=== PATIENT | female | born 1980 | race Caucasian/White ===

== ENCOUNTER 2016-07-12 15:00 | Emergency (ER) | payer MEDICAID ==
[2016-07-12 15:44] VITALS: BP 145/82
--- NOTE | 2016-07-12 17:00 | EDM.PDOC ---
ED HPI GENERAL MEDICAL PROBLEM - General Chief Complaint: Lower Extremity Injury/Pain Stated Complaint: RIGHT BIG TOE FRACTURE? Time Seen by Provider: 07/12/16 16:22 Source of Information: Reports: Patient History Limitations: Reports: No Limitations - History of Present Illness INITIAL COMMENTS - FREE TEXT/NARRATIVE: This lady was pulling some kind of a ceramic pot out of a cabinet when she dropped it onto her right great toe. This happened just prior to arrival. She complains of a lot of pain to the toe and is wondering if it might be broken. - Related Data Allergies Allergy/AdvReac Type Severity Reaction Status Date / Time adhesive Allergy Rash Verified 12/06/15 13:09 codeine Allergy Other Verified 12/06/15 13:09 propoxyphene napsylate AdvReac Unknown Nausea and Verified 12/06/15 13:09 [From Darvocet-N 100] Vomiting sumatriptan [From Imitrex] AdvReac Unknown Dizziness Verified 12/06/15 13:09 sumatriptan succinate AdvReac Unknown Dizziness Verified 12/06/15 13:09 [From Imitrex] influenza virus vaccine, AdvReac Fever Verified 12/06/15 13:09 specific [Influenza Virus Vacc,Specific] Home Meds: Home Meds Omeprazole 20 mg PO ASDIRECTED PRN 01/03/13 [History] Acetaminophen [Tylenol Jr. Meltaways] 640 mg PO Q4H PRN #100 tab.dis 01/07/13 [ Rx] Estradiol [Estradiol] 1 mg PO DAILY 01/08/14 [History] Topiramate [Topamax] 150 mg PO DAILY 01/08/14 [History] Calcium Citrate/Vitamin D3 [Calcium Citrate - Vit D Tablet] 1 tab PO BID [History] Cholecalciferol (Vitamin D3) [Vitamin D] 5,000 units PO BID 04/02/15 [History] Citalopram Hydrobromide [Celexa] 20 mg PO DAILY 04/02/15 [History] Cyanocobalamin (Vitamin B-12) [Vitamin B-12] 1,000 mcg IM Q21D 04/02/15 [History ] Multivitamin [Multiple Vitamins] 1 tab PO DAILY 04/02/15 [History] Ondansetron [Ondansetron ODT] 8 mg PO Q8H PRN 04/02/15 [History] Vitamin B Complex [B Complex] 1 tab PO DAILY 04/02/15 [History] Past Medical History HEENT History: Reports: Impaired Vision Cardiovascular History: Reports: None Respiratory History: Reports: Bronchitis, Recurrent Gastrointestinal History: Reports: GERD Genitourinary History: Reports: None 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: Musculoskeletal History: Reports: Back Pain, Chronic Other Musculoskeletal History: COMPRESSION FRACTURE IN HER THORACIC BACK Neurological History: Reports: Migraines Psychiatric History: Reports: Anxiety Endocrine/Metabolic History: Reports: Obesity/BMI 30+ Hematologic History: Reports: B12 Deficiency, Iron Deficiency Immunologic History: Reports: None Oncologic (Cancer) History: Reports: None Dermatologic History: Reports: None - Infectious Disease History Infectious Disease History: Reports: Chicken Pox - Past Surgical History Head Surgeries/Procedures: Reports: None Cardiovascular Surgical History: Reports: None GI Surgical History: Reports: Bariatric Procedure, Cholecystectomy, EGD Female Surgical History: Reports: Section, Hysterectomy, Salpingo- Oophorectomy Endocrine Surgical History: Reports: None Musculoskeletal Surgical History: Reports: Carpal Tunnel Dermatological Surgical History: Reports: None Social & Family History - Family History HEENT: Reports: Cataract, Glaucoma, Impaired Vision, Sinusitis Cardiac: Reports: Bypass, CAD, Hypertension, Stent Respiratory: Reports: Sleep Apnea GI: Reports: Chronic Diarrhea : Reports: Renal Disease/Insufficiency, UTI, Recurrent OBGYN: Reports: None Musculoskeletal: Reports: Arthritis Neurological: Reports: CVA, Dementia, Migraines Psychiatric: Reports: Anxiety Endocrine/Metabolic: Reports: Diabetes, Type I Hematologic: Reports: None Immunologic: Reports: None Dermatologic: Reports: None Oncologic: Reports: Bladder, Prostate, Renal - Tobacco Use Smoking Status *Q: Never Smoker Years of Tobacco use: 5 Packs/Tins Daily: 0.5 Used Tobacco, but Quit: Yes Month Tobacco Last Used: 2002 Second Hand Smoke Exposure: No - Caffeine Use Caffeine Use: Reports: Coffee - Alcohol Use Days Per Week of Alcohol Use: 0 - Recreational Drug Use Recreational Drug Use: No Review of Systems - Review of Systems Review Of Systems: ROS reveals no pertinent complaints other than HPI. Trauma Exam - Physical Exam Exam: See Below Exam Limited By: No Limitations General Appearance: Reports: Alert, No Apparent Distress, Obese Extremities: Other (The right great toe shows just some very minor ecchymosis around the nail but there is no subungual hematoma. There is good range of motion of the toe. There is mild to moderate generalized tenderness.) Course - Vital Signs Last Recorded V/S: Last Vital Signs Temp 37.0 C 07/12/16 16:09 Pulse 72 07/12/16 16:09 Resp 16 07/12/16 16:09 BP 145/82 H 07/12/16 16:09 Pulse Ox 99 07/12/16 16:09 - Orders/Labs/Meds Orders: Active Orders 24 hr Category Date Time Status Toes Great Toe Rt T5 [CR] Stat Exams 07/12/16 16:26 Ordered - Radiology Interpretation Free Text/Narrative:: No evidence of fracture or dislocation Departure - Departure Time of Disposition: 16:59 Disposition: Home, Self-Care 01 Condition: fair Clinical Impression: Contusion of great toe, right - Discharge Information Forms: ED Department Discharge Additional Instructions: It may help to apply ice to the toe but that's not necessary. Use Tylenol or ibuprofen for pain. It's okay to bear weight as tolerated. This should be back to normal in a day or 2. - My Orders Last 24 Hours: My Active Orders 07/12/16 16:26 Toes Great Toe Rt T5 [CR] Stat - Assessment/Plan Last 24 Hours: My Active Orders 07/12/16 16:26 Toes Great Toe Rt T5 [CR] Stat
--- NOTE | 2016-07-14 08:56 | CR ---
No fracture or dislocation.
== END 2016-07-12 18:19 | disposition home or self-care (01) ==
LOC: JP.ED 15:00
DX: S90.111A Contusion of right great toe without damage to nail, initial encounter (principal); K21.9 Gastro-esophageal reflux disease without esophagitis; G43.909 Migraine, unspecified, not intractable, without status migrainosus; F41.9 Anxiety disorder, unspecified; E66.9 Obesity, unspecified; Z68.30 Body mass index [BMI] 30.0-30.9, adult; Z90.49 Acquired absence of other specified parts of digestive tract; Z88.5 Allergy status to narcotic agent; Z88.8 Allergy status to other drugs, medicaments and biological substances; Z79.899 Other long term (current) drug therapy; Z90.710 Acquired absence of both cervix and uterus; Z98.890 Other specified postprocedural states; W22.8XXA Striking against or struck by other objects, initial encounter
CPT/HCPCS: 73660-26-T5; 73660-T5; 99282; 99284

== ENCOUNTER 2016-11-19 16:59 | Emergency (ER) | payer MEDICAID ==
[2016-11-19 17:28] VITALS: BP 122/72
--- NOTE | 2016-11-19 17:55 | EDM.PDOC ---
ED HPI GENERAL MEDICAL PROBLEM - General Chief Complaint: Lower Extremity Injury/Pain Stated Complaint: FALL/HURT LEFT LEG Time Seen by Provider: 11/19/16 17:30 Source of Information: Reports: Patient, Family History Limitations: Reports: No Limitations - History of Present Illness INITIAL COMMENTS - FREE TEXT/NARRATIVE: 36-year-old female was walking up the stairs, fell forward striking and abrading the anterior aspect of her lower left leg. It's painful to bear weight so she wanted it checked. No other injury. Onset: Sudden Duration: Hour(s): (Within the last few hours) Location: Reports: Lower Extremity, Left Quality: Reports: Burning, Throbbing Severity: Moderate Worsens with: Reports: Other (Weightbearing), Movement Associated Symptoms: Reports: No Other Symptoms Left Leg Pain Score (Numeric/FACES): 6 - Related Data Allergies Allergy/AdvReac Type Severity Reaction Status Date / Time adhesive Allergy Rash Verified 11/19/16 17:13 codeine Allergy Other Verified 11/19/16 17:13 propoxyphene napsylate AdvReac Unknown Nausea and Verified 11/19/16 17:13 [From Darvocet-N 100] Vomiting sumatriptan [From Imitrex] AdvReac Unknown Dizziness Verified 11/19/16 17:13 sumatriptan succinate AdvReac Unknown Dizziness Verified 11/19/16 17:13 [From Imitrex] influenza virus vaccine, AdvReac Fever Verified 11/19/16 17:13 specific [Influenza Virus Vacc,Specific] Home Meds: Home Meds Acetaminophen [Tylenol Jr. Boland] 640 mg PO Q4H PRN #100 tab.dis 01/07/13 [ Rx] Estradiol [Estradiol] 1 mg PO DAILY 01/08/14 [History] Topiramate [Topamax] 150 mg PO DAILY 01/08/14 [History] Calcium Citrate/Vitamin D3 [Calcium Citrate - Vit D Tablet] 1 tab PO BID [History] Cholecalciferol (Vitamin D3) [Vitamin D] 5,000 units PO BID 04/02/15 [History] Citalopram Hydrobromide [Celexa] 20 mg PO DAILY 04/02/15 [History] Cyanocobalamin (Vitamin B-12) [Vitamin B-12] 1,000 mcg IM Q21D 04/02/15 [History ] Multivitamin [Multiple Vitamins] 1 tab PO DAILY 04/02/15 [History] Ondansetron [Ondansetron ODT] 8 mg PO Q8H PRN 04/02/15 [History] Vitamin B Complex [B Complex] 1 tab PO DAILY 04/02/15 [History] Past Medical History HEENT History: Reports: Impaired Vision Cardiovascular History: Reports: None Respiratory History: Reports: Bronchitis, Recurrent Gastrointestinal History: Reports: GERD Genitourinary History: Reports: None 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: Musculoskeletal History: Reports: Back Pain, Chronic Other Musculoskeletal History: COMPRESSION FRACTURE IN HER THORACIC BACK Neurological History: Reports: Migraines Psychiatric History: Reports: Anxiety Endocrine/Metabolic History: Reports: Obesity/BMI 30+ Hematologic History: Reports: B12 Deficiency, Iron Deficiency Immunologic History: Reports: None Oncologic (Cancer) History: Reports: None Dermatologic History: Reports: None - Infectious Disease History Infectious Disease History: Reports: Chicken Pox - Past Surgical History GI Surgical History: Reports: Bariatric Procedure, Cholecystectomy, EGD Female Surgical History: Reports: Section, Hysterectomy, Salpingo- Oophorectomy Musculoskeletal Surgical History: Reports: Carpal Tunnel Social & Family History - Family History HEENT: Reports: Cataract, Glaucoma, Impaired Vision, Sinusitis Cardiac: Reports: Bypass, CAD, Hypertension, Stent Respiratory: Reports: Sleep Apnea GI: Reports: Chronic Diarrhea : Reports: Renal Disease/Insufficiency, UTI, Recurrent OBGYN: Reports: None Musculoskeletal: Reports: Arthritis Neurological: Reports: CVA, Dementia, Migraines Psychiatric: Reports: Anxiety Endocrine/Metabolic: Reports: Diabetes, Type I Hematologic: Reports: None Immunologic: Reports: None Dermatologic: Reports: None Oncologic: Reports: Bladder, Prostate, Renal - Tobacco Use Smoking Status *Q: Never Smoker Years of Tobacco use: 5 Packs/Tins Daily: 0.5 Used Tobacco, but Quit: Yes Month Tobacco Last Used: 2002 Second Hand Smoke Exposure: No - Caffeine Use Caffeine Use: Reports: Coffee - Alcohol Use Days Per Week of Alcohol Use: 0 - Recreational Drug Use Recreational Drug Use: No Review of Systems - Review of Systems Review Of Systems: See Below Constitutional: Denies: Fever Respiratory: Denies: Shortness of Breath, Cough Cardiovascular: Denies: Chest Pain Skin: Reports: Other (She has a superficial abrasion over the lower aspect of the left lower leg) Neurological: Denies: Paresthesia Psychiatric: Reports: No Symptoms ED EXAM, GENERAL - Physical Exam Exam: See Below Exam Limited By: No Limitations General Appearance: Alert, No Apparent Distress (No distress if resting her leg) Respiratory/Chest: No Respiratory Distress Extremities: Other (Remainder of exam is limited to the left lower extremity. She has a superficial abrasion with tenderness over the lower third of the anterior aspect of the lower extremity just above the ankle. No deformity, no significant ankle edema.) Neurological: Alert, Oriented Course - Vital Signs Last Recorded V/S: Last Vital Signs Temp 97.5 F 11/19/16 17:12 Pulse 65 11/19/16 17:12 Resp 16 11/19/16 17:12 BP 122/72 11/19/16 17:12 Pulse Ox 98 11/19/16 17:12 - Orders/Labs/Meds Orders: Active Orders 24 hr Category Date Time Status Tibia Fibula Lt [CR] Stat Exams 11/19/16 17:21 Taken - Re-Assessments/Exams Free Text/Narrative Re-Assessment/Exam: 11/19/16 17:55 A tib-fib x-ray was obtained of the left lower extremity. 11/19/16 18:21 X-rays negative. A four-inch Fran wrap was applied to the lower leg and the patient is going to increase activity as tolerated. Departure - Departure Time of Disposition: 18:27 Disposition: Home, Self-Care 01 Condition: Good Clinical Impression: Contusion of lower leg, left Qualifiers: Encounter type: initial encounter Qualified Code(s): S80.12XA - Contusion of left lower leg, initial encounter - Discharge Information Instructions: Contusion Referrals: Paris King PA [Primary Care Provider] - Forms: ED Department Discharge Care Plan Goals: Wrap leg for comfort, increase activity as tolerated and return if worsening or concerns. Also consider rechecking in 4-5 days if not improving satisfactorily. - My Orders Last 24 Hours: My Active Orders 11/19/16 17:21 Tibia Fibula Lt [CR] Stat - Assessment/Plan Last 24 Hours: My Active Orders 11/19/16 17:21 Tibia Fibula Lt [CR] Stat
--- NOTE | 2016-11-20 11:04 | CR ---
Tibia Fibula Lt INDICATION: fall,injury COMPARISON: None FINDINGS: 4 views. No fracture, dislocation, or other acute bony abnormality. No joint space narr owing. IMPRESSION: Negative study.
== END 2016-11-19 18:27 | disposition home or self-care (01) ==
LOC: JP.ED 16:59
DX: S80.12XA Contusion of left lower leg, initial encounter (principal); K21.9 Gastro-esophageal reflux disease without esophagitis; E10.9 Type 1 diabetes mellitus without complications; E66.9 Obesity, unspecified; G43.909 Migraine, unspecified, not intractable, without status migrainosus; I10 Essential (primary) hypertension; I25.10 Atherosclerotic heart disease of native coronary artery without angina pectoris; Z87.440 Personal history of urinary (tract) infections; Z88.8 Allergy status to other drugs, medicaments and biological substances; Z88.5 Allergy status to narcotic agent; Z88.7 Allergy status to serum and vaccine; Z79.899 Other long term (current) drug therapy; Z90.49 Acquired absence of other specified parts of digestive tract; Z90.710 Acquired absence of both cervix and uterus; W19.XXXA Unspecified fall, initial encounter
CPT/HCPCS: 73590-26-LT; 73590-LT; 99284

== ENCOUNTER 2017-09-13 18:06 | Emergency (ER) | payer MEDICAID ==
[2017-09-13 18:46] VITALS: BP 124/78
--- NOTE | 2017-09-13 19:34 | EDM.PDOC ---
ED HPI GENERAL MEDICAL PROBLEM - General Chief Complaint: General Stated Complaint: NEEDS CAST ON LEFT LEG REPLACED Time Seen by Provider: 09/13/17 18:53 Source of Information: Reports: Patient History Limitations: Reports: No Limitations - History of Present Illness INITIAL COMMENTS - FREE TEXT/NARRATIVE: Cast got wet while swimming. [place] today. Surgery to foot about a week ago. - Related Data Allergies Allergy/AdvReac Type Severity Reaction Status Date / Time adhesive Allergy Rash Verified 09/13/17 18:35 codeine Allergy Other Verified 09/13/17 18:35 propoxyphene napsylate AdvReac Unknown Nausea and Verified 09/13/17 18:35 [From Darvocet-N 100] Vomiting sumatriptan [From Imitrex] AdvReac Unknown Dizziness Verified 09/13/17 18:35 sumatriptan succinate AdvReac Unknown Dizziness Verified 09/13/17 18:35 [From Imitrex] influenza virus vaccine, AdvReac Fever Verified 09/13/17 18:35 specific [Influenza Virus Vacc,Specific] Home Meds: Home Meds Acetaminophen [Tylenol Jr. Boland] 640 mg PO Q4H PRN #100 tab.dis 01/07/13 [ Rx] Estradiol 1 mg PO DAILY 01/08/14 [History] Topiramate [Topamax] 150 mg PO DAILY 01/08/14 [History] Calcium Citrate/Vitamin D3 [Calcium Citrate - Vit D Tablet] 1 tab PO BID [History] Cholecalciferol (Vitamin D3) [Vitamin D] 5,000 units PO BID 04/02/15 [History] Citalopram Hydrobromide [Celexa] 20 mg PO DAILY 04/02/15 [History] Cyanocobalamin (Vitamin B-12) [Vitamin B-12] 1,000 mcg IM Q21D 04/02/15 [History ] Multivitamin [Multiple Vitamins] 1 tab PO DAILY 04/02/15 [History] Ondansetron [Ondansetron ODT] 8 mg PO Q8H PRN 04/02/15 [History] Vitamin B Complex [B Complex] 1 tab PO DAILY 04/02/15 [History] Past Medical History HEENT History: Reports: Impaired Vision Cardiovascular History: Reports: None Respiratory History: Reports: Bronchitis, Recurrent Gastrointestinal History: Reports: GERD Genitourinary History: Reports: None 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: Musculoskeletal History: Reports: Back Pain, Chronic Other Musculoskeletal History: COMPRESSION FRACTURE IN HER THORACIC BACK Neurological History: Reports: Migraines Psychiatric History: Reports: Anxiety Endocrine/Metabolic History: Reports: Obesity/BMI 30+ Hematologic History: Reports: B12 Deficiency, Iron Deficiency Immunologic History: Reports: None Oncologic (Cancer) History: Reports: None Dermatologic History: Reports: None - Infectious Disease History Infectious Disease History: Reports: Chicken Pox - Past Surgical History Head Surgeries/Procedures: Reports: None GI Surgical History: Reports: Bariatric Procedure, Cholecystectomy, EGD Female Surgical History: Reports: Section, Hysterectomy, Salpingo- Oophorectomy Musculoskeletal Surgical History: Reports: Carpal Tunnel Social & Family History - Family History HEENT: Reports: Cataract, Glaucoma, Impaired Vision, Sinusitis Cardiac: Reports: Bypass, CAD, Hypertension, Stent Respiratory: Reports: Sleep Apnea GI: Reports: Chronic Diarrhea : Reports: Renal Disease/Insufficiency, UTI, Recurrent OBGYN: Reports: None Musculoskeletal: Reports: Arthritis Neurological: Reports: CVA, Dementia, Migraines Psychiatric: Reports: Anxiety Endocrine/Metabolic: Reports: Diabetes, Type I Hematologic: Reports: None Immunologic: Reports: None Dermatologic: Reports: None Oncologic: Reports: Bladder, Prostate, Renal - Tobacco Use Smoking Status *Q: Never Smoker - Caffeine Use Caffeine Use: Reports: Coffee ED ROS GENERAL - Review of Systems Review Of Systems: ROS reveals no pertinent complaints other than HPI. ED EXAM, GENERAL - Physical Exam Exam: See Below Exam Limited By: No Limitations General Appearance: Alert Extremities: Other (Cast was removed. Healing incision over 5th metatarsal looks good.) Course - Vital Signs Last Recorded V/S: Last Vital Signs Temp 36.1 C 09/13/17 18:40 Pulse 67 09/13/17 18:40 Resp 14 09/13/17 18:40 BP 124/78 09/13/17 18:40 Pulse Ox 98 09/13/17 18:40 - Re-Assessments/Exams Free Text/Narrative Re-Assessment/Exam: 09/13/17 19:32 Cast replaced by nurse Reynaldo John Looks good. Neurovascular intact post casting Departure - Departure Time of Disposition: 19:32 Disposition: Home, Self-Care 01 Condition: Good Clinical Impression: Encounter for replacement of cast - Discharge Information Referrals: Paris King PA [Primary Care Provider] - Additional Instructions: Keep the cast dry. Make sure the circulation to the toes is ok. For pain or dark discoloration to the toes return to the ER immediately
== END 2017-09-13 19:50 | disposition home or self-care (01) ==
LOC: JP.ED 18:06
DX: S92.342D Displaced fracture of fourth metatarsal bone, left foot, subsequent encounter for fracture with routine healing (principal); K21.9 Gastro-esophageal reflux disease without esophagitis; F41.9 Anxiety disorder, unspecified; Z79.899 Other long term (current) drug therapy; Z91.09 Other allergy status, other than to drugs and biological substances; Z88.2 Allergy status to sulfonamides; Z88.7 Allergy status to serum and vaccine; X58.XXXD Exposure to other specified factors, subsequent encounter
CPT/HCPCS: 99283

== ENCOUNTER 2018-10-10 15:44 | Emergency (ER) | payer MEDICAID, OTHER ==
[2018-10-10 15:56] VITALS: BP 117/48; PULSE 60
--- NOTE | 2018-10-10 16:35 | EDM.PDOC ---
ED HPI GENERAL MEDICAL PROBLEM - General Chief Complaint: Lower Extremity Injury/Pain Stated Complaint: L FOOT ISSUES WITH BROKEN FOOT Time Seen by Provider: 10/10/18 16:00 Source of Information: Reports: Patient, Family History Limitations: Reports: No Limitations - History of Present Illness INITIAL COMMENTS - FREE TEXT/NARRATIVE: 38-year-old female with persistent left foot pain for the past week and a half since starting work and bearing weight on the foot on a regular basis. 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 She works tomorrow and is afraid to go back to work to worsen her pain and inflammation. Onset: Gradual Duration: Day(s): (Over the past 7 days) Location: Reports: Lower Extremity, Left Quality: Reports: Ache, Burning Worsens with: Reports: Other (Weightbearing) Associated Symptoms: Denies: Fever/Chills left;foot Pain Score (Numeric/FACES): 6 - Related Data Allergies Allergy/AdvReac Type Severity Reaction Status Date / Time adhesive Allergy Rash Verified 10/10/18 15:59 codeine Allergy Other Verified 10/10/18 15:59 propoxyphene napsylate AdvReac Unknown Nausea and Verified 10/10/18 15:59 [From Darvocet-N 100] Vomiting sumatriptan [From Imitrex] AdvReac Unknown Dizziness Verified 10/10/18 15:59 sumatriptan succinate AdvReac Unknown Dizziness Verified 10/10/18 15:59 [From Imitrex] influenza virus vaccine, AdvReac Fever Verified 10/10/18 15:59 specific [Influenza Virus Vacc,Specific] Home Meds: Home Meds Acetaminophen [Tylenol Jr. Meltaways] 640 mg PO Q4H PRN #100 tab.dis 01/07/13 [ Rx] Estradiol 1 mg PO DAILY 01/08/14 [History] Topiramate [Topamax] 150 mg PO DAILY 01/08/14 [History] Calcium Citrate/Vitamin D3 [Calcium Citrate - Vit D Tablet] 1 tab PO BID [History] Cholecalciferol (Vitamin D3) [Vitamin D] 5,000 units PO BID 04/02/15 [History] Citalopram Hydrobromide [Celexa] 20 mg PO DAILY 04/02/15 [History] Cyanocobalamin (Vitamin B-12) [Vitamin B-12] 1,000 mcg IM Q21D 04/02/15 [History ] Multivitamin [Multiple Vitamins] 1 tab PO DAILY 04/02/15 [History] Ondansetron [Ondansetron ODT] 8 mg PO Q8H PRN 04/02/15 [History] Vitamin B Complex [B Complex] 1 tab PO DAILY 04/02/15 [History] Phentermine HCl 15 cap PO DAILY 10/10/18 [History] Past Medical History HEENT History: Reports: Impaired Vision Cardiovascular History: Reports: None Respiratory History: Reports: Bronchitis, Recurrent Gastrointestinal History: Reports: GERD Genitourinary History: Reports: 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: Musculoskeletal History: Reports: Back Pain, Chronic Other Musculoskeletal History: COMPRESSION FRACTURE IN HER THORACIC BACK Neurological History: Reports: Migraines Psychiatric History: Reports: Anxiety Endocrine/Metabolic History: Reports: Obesity/BMI 30+ Hematologic History: Reports: B12 Deficiency, Iron Deficiency Immunologic History: Reports: None Oncologic (Cancer) History: Reports: None Dermatologic History: Reports: None - Infectious Disease History Infectious Disease History: Reports: Chicken Pox - Past Surgical History Head Surgeries/Procedures: Reports: None GI Surgical History: Reports: Bariatric Procedure, Cholecystectomy, EGD Female Surgical History: Reports: Section, Hysterectomy, Salpingo- Oophorectomy Musculoskeletal Surgical History: Reports: Carpal Tunnel Social & Family History - Family History HEENT: Reports: Cataract, Glaucoma, Impaired Vision, Sinusitis Cardiac: Reports: Bypass, CAD, Hypertension, Stent Respiratory: Reports: Sleep Apnea GI: Reports: Chronic Diarrhea : Reports: Renal Disease/Insufficiency, UTI, Recurrent OBGYN: Reports: None Musculoskeletal: Reports: Arthritis Neurological: Reports: CVA, Dementia, Migraines Psychiatric: Reports: Anxiety Endocrine/Metabolic: Reports: Diabetes, Type I Hematologic: Reports: None Immunologic: Reports: None Dermatologic: Reports: None Oncologic: Reports: Bladder, Prostate, Renal - Tobacco Use Smoking Status *Q: Never Smoker - Caffeine Use Caffeine Use: Reports: Coffee Review of Systems - Review of Systems Review Of Systems: See Below Constitutional: Denies: Fever Respiratory: Reports: No Symptoms Cardiovascular: Reports: No Symptoms GI/Abdominal: Reports: No Symptoms Skin: Denies: Erythema Neurological: Denies: Paresthesia ED EXAM, GENERAL - Physical Exam Exam: See Below Exam Limited By: No Limitations General Appearance: Alert, No Apparent Distress Respiratory/Chest: No Respiratory Distress Extremities: Other (Exam is otherwise limited the lower extremities. On the lateral aspect of the left foot over the distal metacarpal there is some mild swelling, tenderness to palpation but no erythema or warmth.) Course - Vital Signs Last Recorded V/S: Last Vital Signs Temp 97.8 F 10/10/18 16:00 Pulse 60 10/10/18 16:00 Resp 16 10/10/18 16:00 BP 117/48 L 10/10/18 16:00 Pulse Ox 96 10/10/18 16:00 - Re-Assessments/Exams Free Text/Narrative Re-Assessment/Exam: 10/10/18 16:42 Her clinic visit from 2 days ago was reviewed, her physical exam sounds very similar. The x-ray report was reviewed and looks reassuring. I encouraged her to continue wearing the walking boot per podiatry orders but put a 2 inch Fran wrap on the foot under the walking boot which provided support and felt better. Ibuprofen 2-3 times a day until her orthopedic recheck this week would be beneficial. Departure - Departure Time of Disposition: 16:44 Disposition: Home, Self-Care 01 Clinical Impression: Foot pain, left - Discharge Information Instructions: Musculoskeletal Pain Referrals: Paris King PA [Primary Care Provider] - Forms: ED Department Discharge Care Plan Goals: Wear Fran wrap for support, and continue wearing the walking boot. Recheck with podiatry as soon as possible this week for further opinion and treatment. Ibuprofen 2-3 times daily may be beneficial.
== END 2018-10-10 16:43 | disposition home or self-care (01) ==
LOC: JP.ED 15:44
DX: M79.672 Pain in left foot (principal); F41.9 Anxiety disorder, unspecified; G43.909 Migraine, unspecified, not intractable, without status migrainosus; Z91.048 Other nonmedicinal substance allergy status; Z88.5 Allergy status to narcotic agent; Z88.6 Allergy status to analgesic agent; Z88.7 Allergy status to serum and vaccine; Z79.899 Other long term (current) drug therapy
CPT/HCPCS: 99283

== ENCOUNTER 2019-03-01 12:24 | Emergency (ER) | payer MEDICAID, OTHER ==
[2019-03-01] MEDS ORDERED: fentaNYL 100 MCG/2 ML SDV IM ONE (12:46)
[2019-03-01] MEDS ORDERED: LORazepam 1 MG Tab PO ONE (12:47)
[2019-03-01 12:53] VITALS: BP 124/41; PULSE 70
--- NOTE | 2019-03-01 13:07 | EDM.PDOC ---
ED HPI GENERAL MEDICAL PROBLEM - General Stated Complaint: DOG BITE FACE Time Seen by Provider: 03/01/19 12:46 Source of Information: Reports: Patient, Family, RN Notes Reviewed History Limitations: Reports: No Limitations - History of Present Illness INITIAL COMMENTS - FREE TEXT/NARRATIVE: 38-year-old female presents emergency department today following a dog bite, she was at the [employer] examining a dog outside of a beagle which ended up biting her nose she now has a skin missing over the dorsal surface of her nose approximately 2 x 2 centimeter patch, the dog's rabies shots were up-to- date her tetanus is up-to-date Nose Pain Score (Numeric/FACES): 10 - Related Data Allergies Allergy/AdvReac Type Severity Reaction Status Date / Time adhesive Allergy Rash Verified 03/01/19 12:48 codeine Allergy Other Verified 03/01/19 12:48 propoxyphene napsylate AdvReac Unknown Nausea and Verified 03/01/19 12:48 [From Darvocet-N 100] Vomiting sumatriptan [From Imitrex] AdvReac Unknown Dizziness Verified 03/01/19 12:48 sumatriptan succinate AdvReac Unknown Dizziness Verified 03/01/19 12:48 [From Imitrex] influenza virus vaccine, AdvReac Fever Verified 03/01/19 12:48 specific [Influenza Virus Vacc,Specific] Home Meds: Home Meds Acetaminophen [Tylenol Jr. [place]eltaways] 640 mg PO Q4H PRN #100 tab.dis 01/07/13 [ Rx] Topiramate [Topamax] 150 mg PO DAILY 01/08/14 [History] estradioL [Estradiol] 1 mg PO DAILY 01/08/14 [History] Calcium Citrate/Vitamin D3 [Calcium Citrate - Vit D Tablet] 1 tab PO BID [History] Cholecalciferol (Vitamin D3) [Vitamin D] 5,000 units PO BID 04/02/15 [History] Citalopram Hydrobromide [Celexa] 20 mg PO DAILY 04/02/15 [History] Cyanocobalamin (Vitamin B-12) [Vitamin B-12] 1,000 mcg IM Q21D 04/02/15 [History ] Multivitamin [Multiple Vitamins] 1 tab PO DAILY 04/02/15 [History] Ondansetron [Ondansetron ODT] 8 mg PO Q8H PRN 04/02/15 [History] Vitamin B Complex [B Complex] 1 tab PO DAILY 04/02/15 [History] Phentermine HCl 15 cap PO DAILY 10/10/18 [History] Past Medical History HEENT History: Reports: Impaired Vision Respiratory History: Reports: Bronchitis, Recurrent Gastrointestinal History: Reports: [employer]GER History: Reports: Musculoskeletal History: Reports: Back Pain, Chronic Other Musculoskeletal History: COMPRESSION FRACTURE IN HER THORACIC BACK Neurological History: Reports: Migraines Psychiatric History: Reports: Anxiety Endocrine/Metabolic History: Reports: Obesity/BMI 30+ Hematologic History: Reports: B12 Deficiency, Iron Deficiency Immunologic History: Reports: None Oncologic (Cancer) History: Reports: None Dermatologic History: Reports: None - Infectious Disease History Infectious Disease History: Reports: Chicken Pox - Past Surgical History Head Surgeries/Procedures: Reports: None GI Surgical History: Reports: Bariatric Procedure, Cholecystectomy, EGD Female Surgical History: Reports: Section, Hysterectomy, Salpingo- Oophorectomy Musculoskeletal Surgical History: Reports: Carpal Tunnel Social & Family History - Family History HEENT: Reports: Cataract, Glaucoma, Impaired Vision, Sinusitis Cardiac: Reports: Bypass, CAD, Hypertension, Stent Respiratory: Reports: Sleep Apnea GI: Reports: Chronic Diarrhea : Reports: Renal Disease/Insufficiency, UTI, Recurrent OBGYN: Reports: None Musculoskeletal: Reports: Arthritis Neurological: Reports: CVA, Dementia, Migraines Psychiatric: Reports: Anxiety Endocrine/Metabolic: Reports: Diabetes, Type I Hematologic: Reports: None Immunologic: Reports: None Dermatologic: Reports: None Oncologic: Reports: Bladder, Prostate, Renal - Caffeine Use Caffeine Use: Reports: Coffee ED ROS ENT - Review of Systems Review Of Systems: See Below Constitutional: Reports: No Symptoms HEENT: Reports: No Symptoms Respiratory: Reports: No Symptoms Cardiovascular: Reports: No Symptoms Skin: Reports: Wound ED EXAM, ENT - Physical Exam Exam: See Below Exam Limited By: No Limitations General Appearance: Alert, Mild Distress Fron/Back Body Diagram: 1 - 2 x 2 cm patch over the dorsum of the nose the layer of skin is missing was avulsed bleeding is controlled Course - Vital Signs Last Recorded V/S: Last Vital Signs Temp 95.6 F 03/01/19 12:52 Pulse 70 03/01/19 12:52 Resp 16 03/01/19 12:52 BP 124/41 L 03/01/19 12:52 Pulse Ox 96 03/01/19 12:52 - Orders/Labs/Meds Meds: Medications Discontinued Medications Generic Name Dose Route Start Last Admin Trade Name Nick PRN Reason Stop Dose Admin Fentanyl 50 mcg 03/01/19 12:46 03/01/19 13:05 Sublimaze IM 03/01/19 12:47 50 mcg ONETIME ONE Administration Hydromorphone HCl 1 mg 03/01/19 13:29 Dilaudid IM 03/01/19 13:30 ONETIME ONE Lorazepam 1 mg 03/01/19 12:47 03/01/19 13:04 Ativan PO 03/01/19 12:48 1 mg ONETIME ONE Administration Departure - Departure Time of Disposition: 13:34 Disposition: Home, Self-Care 01 Condition: Fair Clinical Impression: Avulsion of skin of face Qualifiers: Encounter type: initial encounter Qualified Code(s): S01.80XA - Unspecified open wound of other part of head, initial encounter - Discharge Information Instructions: Wound Care, Adult Referrals: Paris King PA [Primary Care Provider] - Additional Instructions: Take full course of antibiotics, use hydrocodone as needed for pain control, cleanse the wound with soap and water, your appointment time is [address] Galindo [facility] Sepsis Event Note - Evaluation Sepsis Screening Result: No Definite Risk - Focused Exam Vital Signs: Vital Signs Temp Pulse Resp BP Pulse Ox 03/01/19 12:52 95.6 F 70 16 124/41 L 96 Date Exam was Performed: 03/01/19 Time Exam was Performed: 13:32 - Assessment/Plan Plan: Assessment Acuity = acute Site and laterality = avulsion dorsum of the skin over the nose Etiology = secondary to dog bite Manifestations = none Location of injury = Home Lab values = none Plan Call discussed case with Dr. Galindo ear nose and throat at 1250 recommended placing gauze over the wound area placing on antibiotics of Keflex therefore prescription was written Keflex 500 mg p.o. 4 times daily x10 days, hydrocodone 5/325 1 tab p.o. 3 times daily PRN total #10 written for pain control. She will report to Dr. Galindo's office tomorrow morning [facility] at 1 pm [facility] This note was dictated using [employer] voice recognition software please call with any questions on syntax or grammar.
[2019-03-01] MEDS ORDERED: HYDROmorphone 1 MG/ML Syringe IM ONE (13:29)
== END 2019-03-01 13:52 | disposition home or self-care (01) ==
LOC: JP.ED 12:24
DX: S01.25XA Open bite of nose, initial encounter (principal); E66.9 Obesity, unspecified; Z88.5 Allergy status to narcotic agent; Z88.8 Allergy status to other drugs, medicaments and biological substances; Z88.7 Allergy status to serum and vaccine; Z91.048 Other nonmedicinal substance allergy status; Z68.42 Body mass index [BMI] 45.0-49.9, adult; W54.0XXA Bitten by dog, initial encounter
CPT/HCPCS: 96372; 99283; A9270; J1170; J3010

== ENCOUNTER 2020-12-17 14:24 | Emergency (ER) | payer OTHER ==
[2020-12-17 14:50] VITALS: BP 96/80; PULSE 65
--- NOTE | 2020-12-17 15:59 | EDM.PDOC ---
ED HPI GENERAL MEDICAL PROBLEM - General Chief Complaint: Respiratory Problem Stated Complaint: SOB Time Seen by Provider: 12/17/20 15:45 Source of Information: Reports: Patient History Limitations: Reports: No Limitations - History of Present Illness INITIAL COMMENTS - FREE TEXT/NARRATIVE: 40-year-old female who has had Covid symptoms for the last 10 or 11 days has a very persistent cough, feels weak, and just wants to be evaluated to make sure she is not in trouble. No fever, she does have some generalized body aches and her main concern is her weakness and persistent cough. Onset: Gradual Duration: Day(s): (Symptoms started 11 days ago) Worsens with: Reports: Other (Activity causes increased shortness of breath) Associated Symptoms: Reports: Cough, Loss of Appetite, Malaise, Shortness of Breath, Weakness. Denies: Fever/Chills - Related Data Allergies Allergy/AdvReac Type Severity Reaction Status Date / Time adhesive Allergy Rash Verified 12/17/20 14:50 codeine Allergy Other Verified 12/17/20 14:50 propoxyphene napsylate AdvReac Unknown Nausea and Verified 12/17/20 14:50 [From Darvocet-N 100] Vomiting sumatriptan [From Imitrex] AdvReac Unknown Dizziness Verified 12/17/20 14:50 sumatriptan succinate AdvReac Unknown Dizziness Verified 12/17/20 14:50 [From Imitrex] influenza virus vaccine, AdvReac Fever Verified 12/17/20 14:50 specific [Influenza Virus Vacc,Specific] Home Meds: Home Meds Acetaminophen [Tylenol Jr. 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: Musculoskeletal History: Reports: Back Pain, Chronic Other Musculoskeletal History: COMPRESSION FRACTURE IN HER THORACIC BACK Neurological History: Reports: Migraines Psychiatric History: Reports: Anxiety Endocrine/Metabolic History: Reports: Obesity/BMI 30+ Hematologic History: Reports: B12 Deficiency, Iron Deficiency Immunologic History: Reports: None Oncologic (Cancer) History: Reports: None Dermatologic History: Reports: None - Infectious Disease History Infectious Disease History: Reports: Chicken Pox - Past Surgical History Head Surgeries/Procedures: Reports: None HEENT Surgical History: Reports: LASIK, Tonsillectomy Cardiovascular Surgical History: Reports: None Respiratory Surgical History: Reports: None GI Surgical History: Reports: Bariatric Procedure, Cholecystectomy, EGD Female Surgical History: Reports: Section, Hysterectomy, Salpingo- Oophorectomy Endocrine Surgical History: Reports: None Musculoskeletal Surgical History: Reports: Carpal Tunnel Other Musculoskeletal Surgeries/Procedures:: bone spur on right ankle, thumb release left hand Dermatological Surgical History: Reports: None Social & Family History - Family History HEENT: Reports: Cataract, Glaucoma, Impaired Vision, Sinusitis Cardiac: Reports: Bypass, CAD, Hypertension, Stent Respiratory: Reports: Sleep Apnea GI: Reports: Chronic Diarrhea : Reports: Renal Disease/Insufficiency, UTI, Recurrent OBGYN: Reports: None Musculoskeletal: Reports: Arthritis Neurological: Reports: CVA, Dementia, Migraines Psychiatric: Reports: Anxiety Endocrine/Metabolic: Reports: Diabetes, Type I Hematologic: Reports: None Immunologic: Reports: None Dermatologic: Reports: None Oncologic: Reports: Bladder, Prostate, Renal - Tobacco Use Tobacco Use Status *Q: Never Tobacco User - Caffeine Use Caffeine Use: Reports: Coffee - Recreational Drug Use Recreational Drug Use: No ED ROS GENERAL - Review of Systems Review Of Systems: See Below Constitutional: Reports: Malaise. Denies: Fever, Chills HEENT: Denies: Throat Pain Respiratory: Reports: Shortness of Breath, Cough Cardiovascular: Reports: Chest Pain (Chest pain with coughing) GI/Abdominal: Denies: Nausea, Vomiting : Reports: No Symptoms Musculoskeletal: Reports: Muscle Pain (Generalized body aches) Skin: Reports: No Symptoms Neurological: Reports: Headache (Mild intermittent headaches) Psychiatric: Reports: No Symptoms ED EXAM, GENERAL - Physical Exam Exam: See Below Exam Limited By: No Limitations General Appearance: Alert, No Apparent Distress, Other (Looks tired and ill but not distressed) Eye Exam: Bilateral Eye: Normal Inspection (Good hydration) Head: Atraumatic Respiratory/Chest: No Respiratory Distress, Lungs Clear, Other (Patient has a very frequent dry hacking cough but her lungs are clear) Cardiovascular: Regular Rate, Rhythm GI/Abdominal: Soft, Non-Tender Neurological: Alert, Oriented Psychiatric: Flat Affect Skin Exam: Warm, Dry Course - Vital Signs Last Recorded V/S: Last Vital Signs Temp 96.3 F L 12/17/20 14:49 Pulse 65 12/17/20 14:49 Resp 24 H 12/17/20 14:49 BP 96/80 12/17/20 14:49 Pulse Ox 100 12/17/20 14:49 - Re-Assessments/Exams Free Text/Narrative Re-Assessment/Exam: 12/17/20 15:57 Patient's O2 saturations are 99 to 100%, lungs are clear. She is out of the window for monoclonal antibody therapy. I gave her some Tessalon Perles to try to suppress the cough, and an albuterol inhaler which may give her some relief from the tightness but she is otherwise going to have to wait for this to resolve on its own. She can return anytime if worsening such as increased shortness of breath. Departure - Departure Time of Disposition: 15:59 Disposition: Home, Self-Care 01 Clinical Impression: COVID-19 - Discharge Information Instructions: COVID-19 Referrals: Paris King PA [Primary Care Provider] - Forms: ED Department Discharge Care Plan Goals: Rest, fluids, use cough suppression as prescribed and try 2 puffs of the inhaler every 3 or 4 hours for shortness of breath. Increase activity as tolerated and consider rechecking in 2 to 3 days if not improving satisfactorily, or return anytime if worsening such as increasing shortness of breath. Sepsis Event Note (ED) - Evaluation Sepsis Screening Result: No Definite Risk - Focused Exam Vital Signs: Vital Signs Temp Pulse Resp BP Pulse Ox 12/17/20 14:49 96.3 F L 65 24 H 96/80 100
== END 2020-12-17 16:06 | disposition home or self-care (01) ==
LOC: JP.ED 14:24
DX: U07.1 COVID-19 (principal); E66.9 Obesity, unspecified; Z68.43 Body mass index [BMI] 50.0-59.9, adult; Z88.5 Allergy status to narcotic agent; Z91.048 Other nonmedicinal substance allergy status; Z88.8 Allergy status to other drugs, medicaments and biological substances; Z88.7 Allergy status to serum and vaccine
CPT/HCPCS: 99284

== ENCOUNTER 2021-07-18 16:18 | Emergency (ER) | payer OTHER ==
[2021-07-18 16:30] VITALS: BP 151/100; PULSE 85
[2021-07-18] MEDS ORDERED: HYDROmorphone 1 MG/ML Syringe IM ONE (16:56)
[2021-07-18] MEDS ORDERED: Aluminum Hydroxide/Magnesium Hydroxide/Simethicone Susp 30 ML Cup PO ONE (18:05)
== END 2021-07-18 18:53 | disposition home or self-care (01) ==
LOC: JP.ED 16:18
DX: S83.91XA Sprain of unspecified site of right knee, initial encounter (principal); E66.9 Obesity, unspecified; Z68.43 Body mass index [BMI] 50.0-59.9, adult; Z91.048 Other nonmedicinal substance allergy status; Z88.5 Allergy status to narcotic agent; Z88.7 Allergy status to serum and vaccine; Z88.8 Allergy status to other drugs, medicaments and biological substances; X50.1XXA Overexertion from prolonged static or awkward postures, initial encounter
CPT/HCPCS: 73562; 96372; 99282; 99283; A9270; J1170

== ENCOUNTER 2022-03-31 07:45 | Emergency (ER) | payer OTHER ==
[2022-03-31 07:57] VITALS: BP 127/72; PULSE 96
[2022-03-31] MEDS ORDERED: Ondansetron 4 MG/2 ML SDV IVPUSH ONE (08:18)
[2022-03-31] MEDS ORDERED: Sodium Chloride 0.9% 1,000 ML IV SCH (08:30)
[2022-03-31 08:50] LABS: ESTIMATED GFR 82 mL/min (>60)
[2022-03-31] MEDS ORDERED: Pantoprazole 40 MG Vial IVPUSH ONE (09:50)
== END 2022-03-31 10:04 | disposition home or self-care (01) ==
LOC: JP.ED 07:45
DX: A08.4 Viral intestinal infection, unspecified (principal); E66.9 Obesity, unspecified; Z68.43 Body mass index [BMI] 50.0-59.9, adult; Z91.048 Other nonmedicinal substance allergy status; Z88.5 Allergy status to narcotic agent; Z88.8 Allergy status to other drugs, medicaments and biological substances; Z88.7 Allergy status to serum and vaccine; Z86.16 Personal history of COVID-19; Z87.891 Personal history of nicotine dependence
CPT/HCPCS: 36415; 80053; 83690; 85025; 96361; 96374; 96375; 99284; C9113; J2405; J7030

== ENCOUNTER 2022-08-23 17:14 | Emergency (ER) | payer OTHER, MEDICAID ==
[2022-08-23] MEDS ORDERED: Bupivacaine 0.5% 10 ML SDV INJECT ONE (18:32)
[2022-08-23] MEDS ORDERED: Triamcinolone Acetonide 40 MG/ML 1 ML SDV INJECT STA (18:32)
[2022-08-23 20:11] VITALS: BP 124/53; PULSE 63
== END 2022-08-23 19:20 | disposition home or self-care (01) ==
LOC: JP.ED 17:14
DX: S46.911A Strain of unspecified muscle, fascia and tendon at shoulder and upper arm level, right arm, initial encounter (principal); M75.51 Bursitis of right shoulder; E66.9 Obesity, unspecified; Z91.09 Other allergy status, other than to drugs and biological substances; Z88.5 Allergy status to narcotic agent; Z88.8 Allergy status to other drugs, medicaments and biological substances; Z88.7 Allergy status to serum and vaccine; Z86.16 Personal history of COVID-19; Z68.43 Body mass index [BMI] 50.0-59.9, adult; X50.0XXA Overexertion from strenuous movement or load, initial encounter; Y92.89 Other specified places as the place of occurrence of the external cause; Y99.0 Civilian activity done for income or pay
CPT/HCPCS: 20610; 99283; J3301; J3490

== ENCOUNTER 2023-10-11 18:03 | Emergency (ER) | payer MEDICAID, OTHER ==
[2023-10-11] MEDS ORDERED: Sodium Chloride 0.9% 10 ML Syringe FLUSH PRN (19:26)
[2023-10-11 19:53] LABS: BASOPHILS ABSOLUTE AUTO 0.04 K/uL (0.00-0.10); BASOPHILS PERCENT AUTO 0.8 % (0.1-1.3); EOSINOPHILS ABSOLUTE AUTO 0.18 K/uL (0.00-0.40); EOSINOPHILS PERCENT AUTO 3.5 % (0.0-5.4); HEMATOCRIT 40.8 % (34.3-46.0); HEMOGLOBIN 13.8 g/dL (11.2-15.5); IMMATURE GRAN ABSOLUTE AUTO 0.01 K/uL (0.00-0.23); IMMATURE GRAN PERCENT AUTO 0.2 % (0.0-0.7); LYMPHOCYTES ABSOLUTE AUTO 2.22 K/uL (0.8-3.3); LYMPHOCYTES PERCENT AUTO 43.5 % (11.4-47.7); MEAN CORPUSCULAR HGB CONC 33.8 g/dL (31.6-35.5); MEAN CORPUSCULAR VOLUME 91.7 fL (81.4-99.0); MONOCYTES ABSOLUTE AUTO 0.41 K/uL (0.20-0.90); NEUTROPHILS ABSOLUTE AUTO 2.24 K/uL (1.0-7.6); PLATELET COUNT,PLT 304 K/uL (130-375); RED BLOOD CELL COUNT 4.45 M/uL (3.77-5.24); WHITE BLOOD CELL COUNT,WBC 5.1 K/uL (3.2-11.0)
[2023-10-11 19:55] VITALS: PULSE 59
[2023-10-11 20:16] LABS: A/G RATIO 1.1 (1.2-2.2); ALANINE AMINOTRANSFERASE,ALT 22 U/L (12-78); ALBUMIN 3.8 g/dL (3.4-5.0); ALKALINE PHOSPHATASE 132 U/L (46-116); ASPARTATE AMNIOTRANSFERASE,AST 25 U/L (15-37); BILIRUBIN TOTAL 0.4 mg/dL (0.2-1.0); BLOOD UREA NITROGEN,BUN 11 mg/dL (7-18); CALCIUM 8.5 mg/dL (8.5-10.1); CARBON DIOXIDE,CO2 29 mmol/L (21-32); CHLORIDE,CL 100 mmol/L (100-108); CREATININE 0.9 mg/dL (0.6-1.0); EST CRCL DRUG DOSING (CG) 72.53 mL/min; ESTIMATED GFR 81 mL/min (>60); GLUCOSE RANDOM 93 mg/dL (74-106); POTASSIUM,K 3.4 mmol/L (3.6-5.2); PROTEIN TOTAL,TP 7.2 g/dL (6.4-8.2); SODIUM,NA 137 mmol/L (140-148)
[2023-10-11 20:20] LABS: ANION GAP 11.4 mmol/L (5.0-14.0); TROPONIN I HIGH SENSITIVITY < 4.0 pg/mL (<=60.3)
[2023-10-11] MEDS: Sodium Chloride 0.9% 1,000 ML IV SCH (20:48)
[2023-10-11 20:53] VITALS: BP 110/58
[2023-10-11] MEDS: Iopamidol 755 Mg/ML 100 ML Bottle IV ONE (21:01)
[2023-10-11] MEDS: Sodium Chloride 0.9% 100 ML IV ONE (21:01)
[2023-10-11] MEDS: Sodium Chloride 0.9% 10 ML Syringe FLUSH ONE (21:02)
[2023-10-11] MEDS: Clopidogrel 75 MG Tab PO ONE (21:47)
== END 2023-10-11 21:55 | disposition home or self-care (01) ==
LOC: JP.ED 18:03
DX: R20.0 Anesthesia of skin (principal); R20.2 Paresthesia of skin; J20.9 Acute bronchitis, unspecified; E66.9 Obesity, unspecified; Z86.16 Personal history of COVID-19; Z90.49 Acquired absence of other specified parts of digestive tract; Z90.710 Acquired absence of both cervix and uterus; Z79.899 Other long term (current) drug therapy; Z88.7 Allergy status to serum and vaccine; Z88.8 Allergy status to other drugs, medicaments and biological substances; Z88.5 Allergy status to narcotic agent; Z91.048 Other nonmedicinal substance allergy status
CPT/HCPCS: 36415; 70450; 70496; 70498; 80053; 82947; 83605; 84484; 85025; 93005; 96360; 99284; A9270; J3490; J7030; Q9967